=== PATIENT | female | born 1965 | race Hispanic/Latino ===

== ENCOUNTER 2024-06-18 17:29 | Inpatient (IN) | payer OTHER ==
[~2024-06-18] VITALS: Ht 162.6 cm; Wt 122.5 kg
[2024-06-18 17:34] VITALS: TEMP 98.5
[2024-06-18 18:20] LABS: BASOPHILS % 0.6 % (0.0-1.0); EOSINOPHILS # (AUTO) 0.2 (0.0-0.4); EOSINOPHILS % 2.5 % (0.0-6.0); HEMATOCRIT 47.1 % (34.2-44.1); HEMOGLOBIN 15.2 g/dL (12.0-16.0); LYMPHOCYTES # (AUTO) 2.6 (1.0-3.2); LYMPHOCYTES % 40.1 % (18.0-39.1); MEAN CORPUSCULAR HEMOGLOBIN 29.2 pg (28-32); MEAN CORPUSCULAR HGB CONC 32.3 g/dL (31-35); MEAN CORPUSCULAR VOLUME 90.4 fL (81-99); MONOCYTES # (AUTO) 0.5 (0.2-0.8); MONOCYTES % 7.9 % (4.4-11.3); NEUTROPHILS # (AUTO) 3.2 (2.1-6.9); NEUTROPHILS % 48.6 % (38.7-80.0); PLATELET COUNT 232 x10e3/uL (140-360); RED BLOOD COUNT 5.21 x10e6/uL (3.6-5.1); RED CELL DISTRIBUTION WIDTH 12.7 % (11.7-14.4); WHITE BLOOD COUNT 6.49 x10e3/uL (4.8-10.8)
[2024-06-18] MEDS ORDERED: SODIUM CHLORIDE FLUSH 10 ML SYR INJ PRN (18:30)
[2024-06-18] MEDS ORDERED: DEXTROSE 50% SYRINGE 50 ML IV PRN (18:30)
[2024-06-18] MEDS ORDERED: ONDANSETRON HCL INJ 2MG/ML 2ML 2 MG/ML VIAL IV PRN (18:30)
[2024-06-18 18:34] LABS: BILIRUBIN,URINE NEGATIVE (NEGATIVE); CLARITY,URINE HAZY (CLEAR); COLOR,URINE YELLOW (YELLOW); GLUCOSE, URINE 500 (NEGATIVE); KETONES,URINE NEGATIVE (NEGATIVE); LEUKOCYTE ESTERASE ,URINE SMALL (NEGATIVE); NITRITE,URINE NEGATIVE (NEGATIVE); PH,URINE 6.5 (5 - 7); PROTEIN,URINE DIPSTICK 2+ (NEGATIVE); URINE UROBILINOGEN 0.2 mg/dL (0.2 - 1)
[2024-06-18 18:36] LABS: ALBUMIN 3.1 g/dL (3.5-5.0); ALBUMIN/GLOBULIN RATIO 0.8 (0.8-2.0); BILIRUBIN,TOTAL 0.3 mg/dL (0.2-1.2); CALCIUM 8.7 mg/dL (8.4-10.2); CREATININE, SERUM 1.08 mg/dL (0.57-1.11); TOTAL PROTEIN 7.1 g/dL (6.5-8.1)
[2024-06-18 18:47] LABS: BACTERIA,URINE MANY /HPF; EPITHELIAL CELLS,URINE FEW /LPF
[2024-06-18 19:35] VITALS: PULSE 85; RESP 16; O2SAT 96
[2024-06-18] MEDS: HYDRALAZINE HCL 20 MG/ML VIAL IV PRN (19:36)
[2024-06-18] MEDS: INSULIN REGULAR, HUMAN 100 UNIT/1 ML SQ ONE (19:40)
[2024-06-18] MEDS ORDERED: LISINOPRIL 20 MG TAB ONE (20:39)
[2024-06-18] MEDS: LISINOPRIL 20 MG TAB PO SCH (20:40)
[2024-06-18 20:49] VITALS: PULSE 83; RESP 16
[2024-06-18 20:54] VITALS: BP 161/90; PULSE 85; RESP 20; TEMP 98.2; O2SAT 100
[2024-06-18 21:00] VITALS: PULSE 85; RESP 20; TEMP 98.2
[2024-06-18] MEDS: INSULIN REGULAR, HUMAN 100 UNIT/1 ML SQ SCH (21:36)
[2024-06-18 23:15] VITALS: BP 164/89; PULSE 83; RESP 16; TEMP 98.5; O2SAT 99
[2024-06-19] VITALS (13 sets, daily range): BP systolic 122–151; BP diastolic 55–88; PULSE 66–99; RESP 16–20; TEMP 97.6–98.6; O2SAT 95–100
[2024-06-19] MEDS ORDERED: GLYBURIDE2.5 MG PO (03:11)
[2024-06-19] MEDS ORDERED: FLUTICASONE PRO16 GM (03:11)
[2024-06-19] MEDS ORDERED: LISINOPRIL20 MG PO (03:11)
[2024-06-19] MEDS ORDERED: METFORMIN HCL1000 MG PO (03:11)
[2024-06-19] MEDS ORDERED: ATORVASTATIN CA40 MG PO (03:11)
[2024-06-19 05:08] LABS: BASOPHILS % 0.5 % (0.0-1.0); EOSINOPHILS # (AUTO) 0.2 (0.0-0.4); EOSINOPHILS % 3.4 % (0.0-6.0); HEMATOCRIT 45.8 % (34.2-44.1); HEMOGLOBIN 14.9 g/dL (12.0-16.0); LYMPHOCYTES # (AUTO) 2.1 (1.0-3.2); LYMPHOCYTES % 34.6 % (18.0-39.1); MEAN CORPUSCULAR HEMOGLOBIN 29.4 pg (28-32); MEAN CORPUSCULAR HGB CONC 32.5 g/dL (31-35); MEAN CORPUSCULAR VOLUME 90.3 fL (81-99); MONOCYTES # (AUTO) 0.5 (0.2-0.8); MONOCYTES % 7.7 % (4.4-11.3); NEUTROPHILS # (AUTO) 3.3 (2.1-6.9); NEUTROPHILS % 53.3 % (38.7-80.0); PLATELET COUNT 235 x10e3/uL (140-360); RED BLOOD COUNT 5.07 x10e6/uL (3.6-5.1); WHITE BLOOD COUNT 6.12 x10e3/uL (4.8-10.8)
[2024-06-19 05:49] LABS: ALBUMIN 2.9 g/dL (3.5-5.0); ALBUMIN/GLOBULIN RATIO 0.8 (0.8-2.0); ANION GAP 11.6 mmol/L (8-16); BILIRUBIN,TOTAL 0.3 mg/dL (0.2-1.2); CALCIUM 8.4 mg/dL (8.4-10.2); CREATININE, SERUM 0.89 mg/dL (0.57-1.11); POTASSIUM 3.6 mmol/L (3.5-5.1); TOTAL PROTEIN 6.5 g/dL (6.5-8.1)
[2024-06-19] MEDS: SODIUM CHLORIDE 0.9% 250ML 250 ML ONE (08:21)
[2024-06-19] MEDS ORDERED: MELATONIN 3 MG TAB PO PRN (10:00)
[2024-06-19] MEDS ORDERED: METOPROLOL TARTRATE INJ 1 MG/ML VIAL IV PRN (10:00)
[2024-06-19] MEDS ORDERED: SIMETHICONE 80 MG CHEW PO PRN (10:00)
[2024-06-19] MEDS ORDERED: DOCUSATE SODIUM 100 MG CAP PO PRN (10:00)
[2024-06-19] MEDS ORDERED: ALBUTEROL/IPRATROPIUM 3 ML NEB NEB PRN (10:00)
[2024-06-19 10:21] LABS: CHOL/HDL RATIO 4.6 (3.0-3.6)
[2024-06-19] MEDS: INSULIN GLARGINE 100 UNITS/ML VIAL SQ SCH (10:43)
[2024-06-19] MEDS: MEROPENEM 1 GM in SODIUM CHLORIDE 0.9% 100 ML IV SCH (13:44)
[2024-06-19] MEDS: ATORVASTATIN 40 MG TAB PO SCH (21:10)
[2024-06-20] VITALS (10 sets, daily range): BP systolic 114–156; BP diastolic 65–85; PULSE 81–92; RESP 16–18; TEMP 97.7–98.5; O2SAT 91–100
[2024-06-20 05:21] LABS: BASOPHILS % 0.6 % (0.0-1.0); EOSINOPHILS # (AUTO) 0.1 (0.0-0.4); EOSINOPHILS % 2.1 % (0.0-6.0); HEMATOCRIT 46.1 % (34.2-44.1); HEMOGLOBIN 14.5 g/dL (12.0-16.0); LYMPHOCYTES # (AUTO) 2.4 (1.0-3.2); LYMPHOCYTES % 36.3 % (18.0-39.1); MEAN CORPUSCULAR HEMOGLOBIN 28.9 pg (28-32); MEAN CORPUSCULAR HGB CONC 31.5 g/dL (31-35); MEAN CORPUSCULAR VOLUME 91.8 fL (81-99); MONOCYTES # (AUTO) 0.5 (0.2-0.8); MONOCYTES % 7.9 % (4.4-11.3); NEUTROPHILS # (AUTO) 3.5 (2.1-6.9); NEUTROPHILS % 52.9 % (38.7-80.0); PLATELET COUNT 217 x10e3/uL (140-360); RED BLOOD COUNT 5.02 x10e6/uL (3.6-5.1); RED CELL DISTRIBUTION WIDTH 13.2 % (11.7-14.4); WHITE BLOOD COUNT 6.58 x10e3/uL (4.8-10.8)
[2024-06-20 05:42] LABS: ANION GAP 12.9 mmol/L (8-16); CALCIUM 8.7 mg/dL (8.4-10.2); CREATININE, SERUM 1.05 mg/dL (0.57-1.11); MAGNESIUM 1.7 MG/DL (1.3-2.1); POTASSIUM 3.9 mmol/L (3.5-5.1)
[2024-06-20] MEDS: FLUTICASONE PROPIONATE NASAL SPRAY NS SCH (08:34)
[2024-06-20] MEDS: INSULIN GLARGINE 100 UNITS/ML VIAL SQ STA (21:40)
[2024-06-21] VITALS (11 sets, daily range): BP systolic 118–152; BP diastolic 63–83; PULSE 72–98; RESP 16–20; TEMP 97.7–98.4; O2SAT 96–100
[2024-06-21 05:18] LABS: BASOPHILS % 0.6 % (0.0-1.0); EOSINOPHILS # (AUTO) 0.2 (0.0-0.4); EOSINOPHILS % 2.5 % (0.0-6.0); HEMATOCRIT 46.4 % (34.2-44.1); HEMOGLOBIN 14.5 g/dL (12.0-16.0); LYMPHOCYTES # (AUTO) 2.4 (1.0-3.2); LYMPHOCYTES % 34.2 % (18.0-39.1); MEAN CORPUSCULAR HEMOGLOBIN 28.9 pg (28-32); MEAN CORPUSCULAR HGB CONC 31.3 g/dL (31-35); MEAN CORPUSCULAR VOLUME 92.6 fL (81-99); MONOCYTES # (AUTO) 0.5 (0.2-0.8); MONOCYTES % 7.6 % (4.4-11.3); NEUTROPHILS # (AUTO) 3.9 (2.1-6.9); NEUTROPHILS % 54.8 % (38.7-80.0); PLATELET COUNT 214 x10e3/uL (140-360); RED BLOOD COUNT 5.01 x10e6/uL (3.6-5.1); RED CELL DISTRIBUTION WIDTH 13.1 % (11.7-14.4); WHITE BLOOD COUNT 7.14 x10e3/uL (4.8-10.8)
[2024-06-21 05:37] LABS: ANION GAP 12.9 mmol/L (8-16); CALCIUM 8.6 mg/dL (8.4-10.2); CREATININE, SERUM 0.86 mg/dL (0.57-1.11); MAGNESIUM 1.7 MG/DL (1.3-2.1); PHOSPHORUS 3.8 MG/DL (2.3-4.7); POTASSIUM 3.9 mmol/L (3.5-5.1)
[2024-06-21] MEDS: INSULIN GLARGINE 100 UNITS/ML VIAL SQ SCH (08:51)
[2024-06-21] MEDS: METFORMIN HCL 500 MG TAB PO SCH (08:54)
[2024-06-21] MEDS: ACETAMINOPHEN 325 MG TAB PO PRN (21:58)
[2024-06-22] VITALS (10 sets, daily range): BP systolic 106–159; BP diastolic 63–101; PULSE 79–93; RESP 17–20; TEMP 97.7–98.4; O2SAT 92–100
== END 2024-06-22 18:47 | disposition home or self-care (01) | DRG 690 ==
LOC: ER 18:11 → ERHOLD 18:22 → MED/SURG3 20:56
PROVIDERS: ADMIT Internal Medicine; ATTEND Internal Medicine
DX: N39.0 Urinary tract infection, site not specified (principal); E87.1 Hypo-osmolality and hyponatremia; N17.9 Acute kidney failure, unspecified; Z16.12 Extended spectrum beta lactamase (ESBL) resistance; Z68.42 Body mass index [BMI] 45.0-49.9, adult; E66.9 Obesity, unspecified; E11.9 Type 2 diabetes mellitus without complications; B96.1 Klebsiella pneumoniae [K. pneumoniae] as the cause of diseases classified elsewhere; I10 Essential (primary) hypertension; E78.5 Hyperlipidemia, unspecified; Z79.84 Long term (current) use of oral hypoglycemic drugs; Z90.5 Acquired absence of kidney
CPT/HCPCS: 36415; 80048; 80053; 80061; 81001; 82948; 83036; 83735; 84100; 85025; 87040; 87086; 87186; 94799; 96372; 99284; J0360; J1815; J2185; J2543; J7050

== ENCOUNTER → 2025-02-17 | Outpatient (REF) | payer OTHER ==
[~2025-02-17] MED LIST: ATORVASTATIN CA40 MG PO; FLUTICASONE PRO16 GM; GLYBURIDE2.5 MG PO; INSULIN; LISINOPRIL20 MG PO; METFORMIN HCL1000 MG PO
[2025-02-17 10:41] LABS: ANION GAP 15.3 mmol/L (8-16); CALCIUM 8.7 mg/dL (8.4-10.2); CREATININE, SERUM 0.93 mg/dL (0.57-1.11); POTASSIUM 4.3 mmol/L (3.5-5.1)
== END ==
LOC: RAD 09:38 → EDSTATUS 02-19 07:30
PROVIDERS: ATTEND Urology
DX: Z01.818 Encounter for other preprocedural examination (principal); N39.0 Urinary tract infection, site not specified; R31.29 Other microscopic hematuria; I10 Essential (primary) hypertension
CPT/HCPCS: 36415; 80048; 93005